=== PATIENT | female | born 1960 | race Caucasian/White ===

== ENCOUNTER 2021-09-27 14:47 | Emergency (ER) | payer BC ==
[~2021-09-27] VITALS: Ht 180.3 cm; Wt 123.7 kg
[2021-09-27 15:00] VITALS: BP 149/83
--- NOTE | 2021-09-27 15:13 | PHYS DOC ---
General Adult EDM: Chief Complaint: VAGINAL PROBLEM HPI: HPI: Patient is a 60-year-old female who presents to the emergency department for vaginal itching and irritating that started 2 days ago. Patient reports that 2 days ago when she flew in from [place] she also started experiencing sneezing. Patient denies any cough, shortness of breath, fevers, nausea, vomiting, vaginal bleeding, vaginal discharge or dysuria. (BOBO MUIR APRN) Review of Systems: Review of Systems: Constitutional: See HPI HENT: See HPI Respiratory: See HPI GI: See HPI : See HPI (BOBO MUIR APRN) Physical Exam: PE: Constitutional: Well developed, well nourished, no acute distress, non-toxic appearance. [] HENT: Normocephalic, atraumatic, bilateral external ears normal, oropharynx moist, no oral exudates, nose normal. [] Eyes: PERRL, EOMI, conjunctiva normal, no discharge. [] Neck: Normal range of motion, no stridor Cardiovascular:Normal peripheral perfusion Lungs & Thorax: Normal work of breathing, no tachypnea Abdomen: obese Skin: Warm, dry, no erythema, no rash. [] Back: No tenderness, no CVA tenderness. [] Extremities: No tenderness, no cyanosis, no clubbing, ROM intact, no edema. [] Neurologic: Alert and oriented X 3, normal motor function, normal sensory functi on, no focal deficits noted. [] Psychologic: Affect normal, judgement normal, mood normal. [] (BOBO MUIR APRN) Current Patient Data: Labs: Laboratory Tests Test 09/27/21 14:55 09/27/21 15:26 Urine Collection Type Clean catch Urine Color Straw Urine Clarity Clear Urine pH 5.5 Urine Specific Sunshine 1.010 Urine Protein Neg Urine Glucose (UA) 500 mg/dL Urine Ketones (Stick) Neg mg/dL Urine Blood Trace Urine Nitrite Neg Urine Bilirubin Neg Urine Urobilinogen Dipstick 0.2 mg/dL Urine Leukocyte Esterase Trace Urine RBC 1-2 /HPF Urine WBC 5-10 /HPF Urine Squamous Epithelial Cells Mod /LPF Urine Bacteria Many /HPF Influenza Type A (Rapid) Negative Influenza Type B (Rapid) Negative SARS-CoV-2 Antigen (Rapid) Negative (BOBO MUIR APRN) EKG: EKG: [] (BOBO MUIR APRN) Radiology/Procedures: Radiology/Procedures: [] (BOBO MUIR APRN) Heart Score: C/O Chest Pain: N/A Risk Factors: Risk Factors: DM, Current or recent (<one month) smoker, HTN, HLP, family history of CAD, obesity. Risk Scores: Score 0 - 3: 2.5% MACE over next 6 weeks - Discharge Home Score 4 - 6: 20.3% MACE over next 6 weeks - Admit for Clinical Observation Score 7 - 10: 72.7% MACE over next 6 weeks - Early Invasive Strategies (BOBO MUIR APRN) Course & Med Decision Making: Course & Med Decision Making Pertinent Labs and Imaging studies reviewed. (See chart for details) [] Patient presents to the emergency department for vaginal itching and irritation that started 2 days ago. Patient will be tested for wet prep and GC chlamydia swab. Patient declined pelvic exam. Wet prep was negative. GC chlamydia testing is pending. Patient's urinalysis shows urinary tract infections which are with antibiotic. Patient is also reporting sneezing which will be treated with antihistamine. I discussed with patient all findings and diagnostic testing as well as the need to follow-up with PCP for further evaluation and treatment or return to the ER if any new or worsening symptoms. Strict return precautions were also discussed at length. Patient voiced understanding and agreement with the plan. Patient is hemodynamically stable at the time of disposition. (BOBO MUIR APRN) Dragon Disclaimer: Dragon Disclaimer: This electronic medical record was generated, in whole or in part, using a voice recognition dictation system. (BOBO MUIR APRN) Attending Co-Sign The patient was seen and interviewed as well as examined at the bedside. The chart was reviewed. The case was discussed. Agree with the plan of care. (ARTIE MALDONADO DO) Departure Departure: Impression: Primary Impression: Urinary tract infection Qualified Codes: N30.01 - Acute cystitis with hematuria Disposition: HOME / SELF CARE / HOMELESS Condition: GOOD Patient Instructions: Urinary Tract Infection Additional Instructions: You are seen in the emergency department today for vaginal irritation and itching. You are noted to have a urinary tract infection. This will be treated with an antibiotic. Please start and finish the antibiotic completely. Increase your fluids and avoid bladder irritants like caffeine, sugary beverages and alcohol. For your sneezing you can take an [id number] antihistamine like Zyrtec. You were negative to have a yeast infection or bacterial vaginosis. We also tested you for gonorrhea and chlamydia and you will receive a phone call with your results and 2 to 3 days. Please abstain from sexual intercourse until you receive your results. If you are positive you will need to have treatment at your local health department and you need to notify your sexual partners. Follow-up with your primary care provider on Thursday regarding your ER visit. Return to the emergency department if you develop abdominal pain, intractable nausea or vomiting, high fevers refractory to treatment, blood in your stools or vomit. Scripts Cephalexin (KEFLEX) 500 Mg Capsule 1 CAP PO BID for UTI for 7 Days, #14 CAP 0 Refills Prov: BOBO MUIR APRN 09/27/21 BOBO MUIR APRN September 27, 2021 15:13 ARTIE MALDONADO DO September 28, 2021 07:05
[2021-09-27 15:28] LABS: BACTERIA,URINE MANY /HPF (0-FEW); CLARITY,URINE CLEAR; COLOR,URINE STRAW; GLUCOSE,URINE 500 mg/dL (NEG); NITRITE,URINE NEG (NEG); SQUAMOUS EPITHELIAL CELL,UR MOD /LPF; UROBILINOGEN,URINE 0.2 mg/dL (0.2 mg/dL)
[2021-09-27 16:07] LABS: INFLUENZA A PATIENT NEGATIVE (NEGATIVE); INFLUENZA B PATIENT NEGATIVE (NEGATIVE)
[2021-09-27] MEDS ORDERED: CEPH500C PO (16:15)
[2021-10-02 09:11] LABS: CHLAMYDIA PROBE Negative (Negative)
== END 2021-09-27 16:18 | disposition home or self-care (01) ==
LOC: ER 14:47
DX: N30.01 Acute cystitis with hematuria (principal)
CPT/HCPCS: 81001; 87086; 87428; 87491; 87591; 99283; Q0111